=== PATIENT | male | born 1960 | race Caucasian/White ===

== ENCOUNTER 2019-03-06 18:48 | Emergency (ER) | payer BC ==
--- OUTSIDE RECORDS SUMMARY | 2019-03-06 18:56 | XMS REPORT | Continuity of Care Document ---
:1960 External Reference #:[id number] Author Name Nikko Payne D.O. 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 Onset: 02/07/2017 Insomnia Nikko Payne D.O. Onset: 02/07/2017 Gastroesophageal reflux disease Nikko Payne D.O. Onset: 02/07/2017 Fibromyalgia Nikko Payne D.O. Onset: 02/07/2017 Low back pain Nikko Payne D.O. Onset: 05/10/2017 Social History Type Date Description Comments Sex Unknown Tobacco Use Start: Unknown Never Smoked Cigarettes Smoking Status Reviewed: 02/06/19 Never Smoked Cigarettes ETOH Use Denies alcohol use Allergies, Adverse Reactions, Alerts Description No Known Drug Allergies Medications Active Medications SIG Qnty Indications Ordering Date Provider Magnesium Oxide 2 at [facility] prevention of Samira El 400(240Mg) mg headaches. Tablets Ranitidine HCL take 1 tablet by mouth 180tabs K21.9 [facility], 02/07/2017 twice daily for Samira El 300mg Tablets gastroesophageal reflux disease Multivitamin Adult 1 by mouth every day Unknown 02/06/2017 Tablets Osteo Bi-Flex daily Unknown 02/06/2017 Regular Strength Tablets Metamucil daily Unknown 02/06/2017 Lyrica take one capsule by 90caps M79.7 [facility], 11/17/2016 150mg mouth at night code d Samira El Capsules Immunizations CPT Code Status Date Vaccine Lot # [id number] Given 02/06/2019 Influenza Virus Vaccine, Quadrivalent, Split, [id number] Preservative Free [id number] Given 12/08/2017 Influenza Virus Vaccine, Quadrivalent, Split, [id number] Preservative Free 94730 Given 02/07/2017 Adacel or Boostrix, TDaP [id number] Given 02/07/2017 Influenza Virus Vaccine, Quadrivalent, Split, [id number] Preservative Free Vital Signs Date Vital Result Comment 02/06/2019 9:00am BP Systolic 98 mmHg BP Diastolic 60 mmHg Height 76 inches 6'4" w/shoes Weight 172.00 lb w/shoes BMI (Body Mass Index) 20.9 kg/m2 12/08/2017 9:10am BP Systolic 98 mmHg BP Diastolic 60 mmHg Weight 162.00 lb with sandals Results Test Acquired Date Facility Test Result H/L Range Note CBC Auto 02/07/2019 [facility] White Blood 5.5 10^3/uL Normal 3.5- 10.8 Diff [phone] Count Red Blood Count 5.30 10^6/uL Normal 4.18-5.48 Hemoglobin 16.4 g/dL Normal 14.0-18.0 Hematocrit 48 % Normal 42-52 Mean Corpuscular Volume 90 fL Normal 80-94 Mean Corpuscular Hemoglobin 31 pg Normal 27-31 Mean Corpuscular HGB Conc 34 g/dL Normal 31-36 Red Cell Distribution Width 14 % Normal 10-15 Platelet Count 172 10^3/uL Normal 150-450 Mean Platelet Volume 8.1 fL Normal 7.4-10.4 Abs Neutrophils 3.4 10^3/uL Normal 1.5-7.7 Abs Lymphocytes 1.0 10^3/uL Normal 1.0-4.8 Abs Monocytes 0.7 10^3/uL Normal 0-0.8 Abs Eosinophils 0.2 10^3/uL Normal 0-0.6 Abs Basophils 0.0 10^3/uL Normal 0-0.2 Abs Nucleated RBC 0.0 10^3/uL Granulocyte % 61.9 % Lymphocyte % 19.2 % Monocyte % 13.6 % Eosinophil % 4.6 % Basophil % 0.7 % Nucleated Red Blood Cells % 0.1 Comp Metabolic Panel 02/07/2019 [facility] Sodium 140 mmol/L Normal 135-145 [phone] Potassium 4.2 mmol/L Normal 3.5-5.0 Chloride 105 mmol/L Normal 101-111 Co2 Carbon Dioxide 30 mmol/L Normal 22-32 Anion Gap 5 mmol/L Normal 2-11 Glucose 86 mg/dL Normal 70-100 Blood Urea Nitrogen 13 mg/dL Normal 6-24 Creatinine 0.87 mg/dL Normal 0.67-1.17 BUN/Creatinine Ratio 14.9 Normal 8-20 Calcium 9.6 mg/dL Normal 8.6-10.3 Total Protein 6.6 g/dL Normal 6.4-8.9 Albumin 4.3 g/dL Normal 3.2-5.2 Globulin 2.3 g/dL Normal 2-4 Albumin/Globulin Ratio 1.9 Normal 1-3 Total Bilirubin 1.20 mg/dL High 0.2-1.0 Alkaline Phosphatase 46 U/L Normal 34-104 Alt 18 U/L Normal 7-52 Ast 19 U/L Normal 13-39 Egfr Non- 89.5 >60 Egfr 108.3 >60 1 Connective Tissue Panel 02/07/2019 [facility] Anti-Nuclear Antibody 0.2 U 2 [phone] Cyclic Citrullinated Peptide <15.6 U 3 Interpretation See Comment 4 Laboratory test 02/07/2019 [facility] Erythrocyte Sed 1 mm/Hr Normal 0-19 5 finding [phone] Rate C Reactive Protein 1.83 mg/L Normal <8.01 6 Magnesium 2.1 mg/dL Normal 1.9-2.7 7 TSH (Thyroid Stim Horm) 1.53 mcIU/mL Normal 0.34-5.60 8 PSA Free And Total 02/07/2019 [facility] PSA Total 0.40 ng/mL <=4.5 [phone] PSA Free 0.2 ng/mL PSA Free/Total See Comment ratio 9 Lipid Profile 02/07/2019 [facility] Triglycerides 129 mg/dL 10 (Trig/Chol/HDL) [phone] Cholesterol 186 mg/dL 11 HDL Cholesterol 41.8 mg/dL 12 LDL Cholesterol 118 mg/dL 13 1 Because ethnic data is not always readily available, this report includes an eGFR for both -Americans and non- Americans. The National Kidney Disease Education Program (NKDEP) does not endorse the use of the MDRD equation for patients that are not between the ages of 18 and 70, are , have extremes of body size, muscle mass, or nutritional status, or are non- or non-. According to the National Kidney Foundation, irrespective of diagnosis, the stage of the disease is based on the level of kidney function: Stage Description GFR(mL/min/1.73 m(2)) 1 Kidney damage with normal or decreased GFR 90 2 Kidney damage with mild decrease in GFR 60-89 3 Moderate decrease in GFR 30-59 4 Severe decrease in GFR 15-29 5 Kidney failure <15 (or dialysis) 2 REFERENCE VALUE <=1.0 (Negative) 3 REFERENCE VALUE <20.0 (Negative) 4 Tests for antibodies to dsDNA and BEVERLY antigens are not performed automatically unless the LESA result is > or = 3.0 U. Studies performed at [facility] indicate that positive LESA results <3.0 U are rarely accompanied by positive second order tests. Test Performed by: [place] [address] Freelance Graphic Designer: Nik Patino M.D. Ph.D.; CLIA# [id number] 5 FASTING 12 HOUR 6 FASTING 12 HOUR 7 FASTING 12 HOUR 8 FASTING 12 HOUR 9 Ratio not calculated because clinical usefulness is not defined except in range of total PSA 4.0-10.0 ng/mL. ADDITIONAL INFORMATION The testing method is an electrochemiluminescence assay manufactured by [employer] and performed on the Modular or Santhosh system. Values obtained with different assay methods or kits may be different and cannot be used interchangeably. Test results cannot be interpreted as absolute evidence for the presence or absence of malignant disease. Test Performed by: [place] [address] Freelance Graphic Designer: Nik Patino M.D. Ph.D.; IA# [id number] 10 Desirable: <150 Borderline High: 150-199 High: 200-499 Very High: >500 11 Desirable: <200 Borderline High: 200-239 High: >239 12 Low: <40 Desirable: 40-60 High: >60 13 Desirable: <100 Near Optimal: 100-129 Borderline High: 130-159 High: 160-189 Very High: >189 Procedures Date Code Description Status 02/06/2019 26209 Brief Emotional/Behav Assessment W/ Scoring Doc Per Completed Standard Inst 08/26/2009 76281851 Colonoscopy Completed Medical Devices Description No Information Available Encounters Type Date Location Provider Dx Diagnosis Office Visit 02/06/2019 Main Office Nikko Payne, G47.00 Insomnia, unspecified 8:55a D.O. K21.9 Gastro-esophageal reflux disease without esophagitis M54.5 Low back pain M79.7 Fibromyalgia N40.0 Benign prostatic hyperplasia without lower urinry tract symp R51 Headache M54.16 Radiculopathy, lumbar region Z00.00 Encntr for general adult medical exam w/o abnormal findings Z23 Encounter for immunization Z41.8 [facility] Z[facility].20 Body mass index (BMI) 20.0-20.9, adult Assessments Date Code Description Provider 02/06/2019 G47.00 Insomnia, unspecified Nikko Payne D.OFarzana 02/06/2019 K21.9 Gastro-esophageal reflux disease without Nikko Payne D.O. esophagitis 02/06/2019 M54.5 Low back pain Nikko Payne D.OFarzana 02/06/2019 M79.7 Fibromyalgia Nikko Payne D.OFarzana 02/06/2019 N40.0 Benign prostatic hyperplasia without lower Nikko Payne D.O. urinary tract symptoms 02/06/2019 R51 Headache Nikko Payne D.O. 02/06/2019 M54.16 Radiculopathy, lumbar region Nikko Payne D.OFarzana 02/06/2019 Z00.00 Encounter for general adult medical Nikko Payne D.O. examination without abnormal findings 02/06/2019 Z23 Encounter for immunization Nikko Payne D.O. 02/06/2019 Z41.8 Encounter for other procedures for purposes Nikko aPyne D.O. other than remedying health state 02/06/2019 Z68.20 Body mass index (BMI) 20.0-20.9, adult Nikko Payne D.O. Plan of Treatment Future Appointment(s):02/12/2020 9:15 am - Nikko Payne D.O. at [facility]/06/2019 - Nikko Payne D.O.G47.00 Insomnia, dsxxeolbxfbV53.9 Gastro- esophageal reflux disease without kmteinhhpwlW24.5 Low back painM79.7 NopqyegfctbsZ95.0 Benign prostatic hyperplasia without lower urinary tract jmfvyynpM10 JuwjaaixB15.16 Radiculopathy, lumbar tosxnjD07.00 Encounter for general adult medical examination without abnormal findingsFollow up:1 year DMHMZ23 Encounter for bilxxdvgqqedY59.8 Encounter for other procedures for purposes other than remedying health ylqtqR11.20 Body mass index (BMI) 20.0-20.9 , adult Functional Status Description No Information Available Mental Status Description No Information Available Referrals Description No Information Available
--- NOTE | 2019-03-06 18:57 | UC ---
Skin Complaint HPI - HPI Summary HPI Summary: 58 yo male presents with RIGHT leg wound. He tells me that about 1 week ago he was chopping wood and a piece of wood smacked against his right lower leg. He was wearing pants and high socks, but had a partial thickness abrasion to the area. Since that time he has been applying hydrogen peroxide and neosporin and a bandage daily. Over the last 2-3 days the area has gotten red and more painful. He is concerned for infection. No fevers or streaking. - History of Current Complaint Time Seen by Provider: 03/06/19 18:56 Stated Complaint: RIGHT LEG WOUND Hx Obtained From: Patient Onset/Duration: Gradual Onset Onset Severity: Mild Current Severity: Mild Pain Intensity: 4 Pain Scale Used: 0-10 Numeric - Allergy/Home Medications Allergies/Adverse Reactions: Allergies Allergy/AdvReac Type Severity Reaction Status Date / Time No Known Allergies Allergy Verified 03/06/19 18:55 Home Medications: Home Medications Pregabalin CAP(*) [Lyrica CAP(*)] 1 tab DAILY 03/06/19 [History Confirmed ] PMH/Surg Hx/FS Hx/Imm Hx - Additional Past Medical History Additional PMH: Chronic pain - Surgical History Surgical History: Yes Surgery Procedure, Year, and Place: lymph nodes removed under left armpit, hernia surgery, right carpal tunnel surgery, ganglion cyst removal-rt hand - Family History Known Family History: Positive: Hypertension - Social History Occupation: Employed Full-time Lives: With Family Alcohol Use: None Alcohol Amount: none in 5 years Substance Use Type: None Smoking Status (MU): Never Smoked Tobacco Review of Systems All Other Systems Reviewed And Are Negative: No Constitutional: Positive: Negative Skin: Positive: Other - Leg wound Respiratory: Positive: Negative Cardiovascular: Positive: Negative Neurological: Positive: Negative Psychological: Positive: Negative Physical Exam - Summary Physical Exam Summary: GENERAL: NAD. WDWN. No pain distress. SKIN: RIGHT LOWER LEG: Lateral aspect with 3.5cm x 5mm linear partial thickness abrasion with dried yellow appearing scab. 2-3mm surrounding erythema with mild warmth. Mild TTP. No active drainage. No streaking. NECK: Supple. Nontender. No lymphadenopathy. CHEST: No accessory muscle use. Breathing comfortably and in no distress. CV: Pulses intact. Cap refill <2seconds NEURO: Alert. PSYCH: Age appropriate behavior. Triage Information Reviewed: Yes Vital Signs: Vital Signs: Temp Pulse Resp BP Pulse Ox 97.4 F 64 16 119/66 100 03/06/19 18:56 03/06/19 18:56 03/06/19 18:56 03/06/19 18:56 03/06/19 18:56 Vital Signs Reviewed: Yes Course/Dx - Course Course Of Treatment: Tetanus is within the last 5 years. Will rx for keflex for wound infection and have him stop using the hydrogen peroxide as this is likely delaying healing at this point - Diagnoses Provider Diagnosis: Wound infection Discharge ED - Sign-Out/Discharge Documenting (check all that apply): Patient Departure All imaging exams completed and their final reports reviewed: No Studies - Discharge Plan Condition: Stable Disposition: HOME Prescriptions: Cephalexin CAP* [Keflex CAP*] 500 mg PO TID #21 cap Patient Education Materials: Wound Infection (ED), Acute Wound Care (ED) Referrals: Nikko Payne DO [Primary Care Provider] - Additional Instructions: If you develop a fever, shortness of breath, chest pain, new or worsening symptoms - please call your PCP or go to the ED immediately. - Billing Disposition and Condition Condition: STABLE Disposition: Home
[2019-03-06 19:00] VITALS: BP 119/66
== END 2019-03-06 19:10 | disposition home or self-care (01) ==
LOC: UCCORT 18:48
DX: S80.811A Abrasion, right lower leg, initial encounter (principal); L08.9 Local infection of the skin and subcutaneous tissue, unspecified; W22.09XA Striking against other stationary object, initial encounter; Y93.89 Activity, other specified; Y92.9 Unspecified place or not applicable
CPT/HCPCS: 99212; G0463